=== PATIENT | female | born 2000 | race Caucasian/White ===

== ENCOUNTER 2023-11-13 20:12 | Emergency (ER) | payer BC ==
[~2023-11-13] VITALS: Ht 160 cm; Wt 82.0 kg
[2023-11-13 20:21] VITALS: TEMP 98; O2SAT 98
[2023-11-13] MEDS: DEXAMETHASONE 4MG/ML 1ML VIAL PO ONE (21:45)
[2023-11-14 00:03] VITALS: BP 120/80; PULSE 60; RESP 15
== END 2023-11-14 00:04 | disposition home or self-care (01) ==
LOC: ER 20:12
DX: T18.0XXA Foreign body in mouth, initial encounter (principal); X58.XXXA Exposure to other specified factors, initial encounter; Y93.89 Activity, other specified; Y92.89 Other specified places as the place of occurrence of the external cause; Y99.8 Other external cause status
CPT/HCPCS: 99283; J1100